=== PATIENT | female | born 1990 | race Two or more races ===

== ENCOUNTER 2025-06-17 18:31 | Emergency (ER) | payer OTHER ==
[~2025-06-17] VITALS: Ht 162.6 cm; Wt 74.8 kg
[2025-06-17] MEDS ORDERED: ACETAMINOPHEN 500 MG GEL..CAP PO ONE (19:08)
[2025-06-17 20:20] LABS: BASO % 0.2 % (0.1-1.2); EOS # 0.02 (0.04-0.54); EOS % 0.1 % (0.7-7.0); LYMPH # 1.33 (1.18-3.74); LYMPH % 7.8 % (19.3-53.1); MEAN PLATELET VOLUME 10.40 fl (9.4-12.4); MONO # 0.88 (0.24-0.82); MONO % 5.2 % (4.7-12.5); NEUT # 14.70 (1.56-6.13); NEUT % 86.3 % (34.0-71.1); RED CELL DISTRIBUTION WIDTH 13.2 % (11.6-14.4)
[2025-06-17 20:46] LABS: ALT/SGPT 18.0 U/L (12-78); AST/SGOT 11.0 U/L (15-37); BILIRUBIN TOTAL 0.81 mg/dL (0.3-1.2); BUN CREA RATIO 11.0 (7.0-25.0); CREATININE SERUM 0.84 mg/dL (0.55-1.02); GFR 77.61; GLOBULINA 3.9 G/DL (2.4-3.5); GLUCOSE FASTING 113.0 mg/dL (65-100); OSMOLALITY SERUM 275.0 MOSM/KG (275-295)
[2025-06-17 21:07] LABS: URINE APPEARANCE Cloudy; URINE BILIRRUBIN Negative (NEGATIVE); URINE BLOOD Trace; URINE COLOR Yellow; URINE GLUCOSE Negative (NEGATIVE); URINE KETONE 15 (NEGATIVE); URINE LEUKOCYTE Small; URINE NITRATE Negative; URINE PROTEIN Negative (NEGATIVE); URINE UROBILINOGEN 0.2 E.U./dl
[2025-06-17 21:13] LABS: URINE BACTERIA 3515.8 uL (0.0-1933); URINE EPITHELIAL CELLS 81.0 uL (0.0-38.8); URINE RBC 14.2 uL (0.0-20.8); URINE WBC 128.7 uL (0.0-23.2)
[2025-06-17 21:32] LABS: COVID-19 AG NEGATIVE (NEGATIVE)
[2025-06-17 22:16] LABS: URINE CAST 0.58 uL (0.0-1.40)
[2025-06-17 22:17] LABS: TYPE CELLS SQUAMOUS; URINE MUCUS MODERATE
[2025-06-17] MEDS ORDERED: CEFTRIAXONE SODIUM 1,000 MG VIAL IM STA (23:24)
[2025-06-17] MEDS ORDERED: METHYLPREDNISOLONE SOD SUCC 125 MG VIAL IM STA (23:25)
[2025-06-17] MEDS ORDERED: LIDOCAINE HCL/MPF 1% 5ML VIAL IJ ONE (23:30)
[2025-06-17] MEDS ORDERED: CEFTRIAXONE SODIUM 1,000 MG VIAL ONE (23:30)
[2025-06-17] MEDS ORDERED: METHYLPREDNISOLONE SOD SUCC 125 MG VIAL ONE (23:30)
[2025-06-17] MEDS ORDERED: PYRIDIUM200 MG PO (23:39)
[2025-06-17] MEDS ORDERED: LEVOFLOXACIN750 MG PO (23:39)
== END 2025-06-18 00:27 | disposition home or self-care (01) ==
LOC: ER 18:31
PROVIDERS: Physician Assistant Medical
DX: N39.0 Urinary tract infection, site not specified (principal); J03.80 Acute tonsillitis due to other specified organisms; Z86.16 Personal history of COVID-19; Z20.822 Contact with and (suspected) exposure to COVID-19